=== PATIENT | female | born 1950 | race Caucasian/White ===

== ENCOUNTER 2023-02-28 08:14 | Day surgery (SDC) | payer MEDICARE, OTHER, SELFPAY ==
[2023-02-28] VITALS (7 sets, daily range): BP systolic 82–137; BP diastolic 54–80; PULSE 64–88; RESP 16; TEMP 36.5–36.8; O2SAT 92–95; BMI 30.4
[2023-02-28] MEDS: Lactated Ringers 1,000 ML 15 ML IV (08:46)
--- NOTE | 2023-02-28 09:08 | PCM.HP.STD ---
[facility] - General General Date of Service: 02/28/23 Chief Complaint: Personal history of colon polyps HPI Narrative HOLLEY NVOA, is a 72 F who presents for screening colonoscopy today. She has had a personal history of colon polyps. Her most recent colonoscopy was 2012. She denies any bright red blood per rectum or melena no abdominal pain. No change of bowel habits. No heart or pulmonary disease. [facility] Medical History (Updated 02/28/23 @ 09:[address] Singh Proctor MD) Arthritis Benign essential HTN Cancer Diverticulosis High cholesterol History of echocardiogram Hx of colonic polyp Hx of malignant melanoma Hypercholesterolemia Non-rheumatic tricuspid valve insufficiency Non-smoker Osteoarthritis Wears glasses Home Medications allopurinol 100 mg tablet 100 mg PO DAILY 12/24/22 [History Last Taken Unknown] amlodipine 10 mg tablet 10 mg PO DAILY 12/24/22 [History Last Taken Unknown] aspirin 81 mg tablet,delayed release (Adult Low Dose Aspirin) 81 mg PO QODAY 12/24/22 [History Last Taken Unknown] calcium carbonate 500 mg-vitamin D3 5 mcg (200 unit) tablet (Os-Mickey 500 + D3) 1 tab PO BID 12/24/22 [History Last Taken Unknown] lisinopril 20 mg tablet 20 mg PO DAILY 12/24/22 [History Last Taken 02/28/23] loratadine 10 mg tablet 10 mg PO DAILY PRN ALLERGIES 12/24/22 [History Last Taken Unknown] nitrofurantoin monohydrate/macrocrystals 100 mg capsule (Macrobid) 100 mg PO DAILY PRN UTI 12/24/22 [History Last Taken Unknown] simvastatin 10 mg tablet 10 mg PO DAILY 12/24/22 [History Last Taken Unknown] Allergy/AdvReac Type Severity Reaction Status Date / Time Sulfa (Sulfonamide Allergy Rash Verified 12/24/22 15:10 Antibiotics) Family History (Updated 12/24/22 @ 15:08 by Jen Dick) Unknown No problems noted. Surgical History History of placement of ear tubes History of surgical removal of skin lesion Hx of colonoscopy Hx of hysterectomy Social History (Updated 12/24/22 @ 15:09 by Jen Dick) adopted: Yes household members: spouse current occupational status: retired Smoking Status: Never smoker alcohol intake: never substance use type: does not use ROS Constitutional Constitutional: Reports systems reviewed and no addt'l complaints, except as documented Cardiovascular Cardiovascular: Denies chest pain Respiratory/Chest Respiratory/Chest: Denies shortness of breath at rest Gastrointestinal Gastrointestinal: Denies abdominal pain, change in bowel habits, hematochezia or melena Vital Signs Vital Signs Vital Signs: 02/28/23 08:41 02/28/23 08:41 Temperature 97.7 F L Temperature Source Temporal Pulse Rate 88 Respiratory Rate 16 Respiratory Pattern Normal Blood Pressure 137/80 H Blood Pressure Mean 99 Blood Pressure Source Monitor Blood Pressure Position Semi-Fowlers Blood Pressure Location Right Arm Pulse Ox 95 Oxygen Delivery Method Room Air Weight Weight: 171 lb 15.369 oz Body Mass Index (BMI) 30.4 Physical Exam Const alert, oriented x3 and no apparent distress General Appearance: cooperative and comfortable Eyes General Eye: normal appearance of both eyes Neck General: normal visual inspection Chest inspection of chest normal Resp Effort and Inspection: able to speak in complete sentences and symmetric chest movement Auscultation: clear to auscultation bilaterally Cardio regular rate and regular rhythm GI soft to palpation, non-tender and non-distended Extremity no calf tenderness Neuro oriented x3 Psych thought process normal Assessment & Plan Assessment/Plan (1) Hx of colonic polyp: PLAN: Patient presents via open access today for surveillance colonoscopy as she has a personal history of colon polyps. I recommend a colonoscopy with possible biopsy or polypectomy as indicated. She is aware of the technique, benefit, risk, alternatives. She has had an opportunity to ask and have questions answered. We will proceed as noted. Singh Proctor M.D., F.A.C.S.
--- NOTE | 2023-02-28 09:33 | OP.COLON_ITS ---
Patient Name: Vika Webster Procedure Date: 02/28/2023 8:51 AM Date of : 1950 Age: 72 Procedure: Colonoscopy Indications: High risk colon cancer surveillance: Personal history of colonic polyps Providers: Singh Proctor MD Referring MD: Singh Proctor MD Medicines: See the Anesthesia note for documentation of the administered medications Patient Profile: Last Colonoscopy: 5 years ago. Complications: No immediate complications. Procedure: Pre-Anesthesia Assessment: - Prior to the procedure, a History and Physical was performed, and patient medications and allergies were reviewed. The patient's tolerance of previous anesthesia was also reviewed. The risks and benefits of the procedure and the sedation options and risks were discussed with the patient. All questions were answered, and informed consent was obtained. Prior Anticoagulants: The patient has taken no anticoagulant or antiplatelet agents. ASA Grade Assessment: II - A patient with mild systemic disease. After reviewing the risks and benefits, the patient was deemed in satisfactory condition to undergo the procedure. After I obtained informed consent, the scope was passed under direct vision. Throughout the procedure, the patient's blood pressure, pulse, and oxygen saturations were monitored continuously. The adult colonoscope was introduced through the anus and advanced to the cecum, identified by appendiceal orifice and ileocecal valve. The colonoscopy was performed without difficulty. The patient tolerated the procedure well. The quality of the bowel preparation was good. The ileocecal valve and the appendiceal orifice were photographed. Scope In: 9:16:35 AM Scope Withdrawal Time 0 hours 6 minutes 36 seconds Scope Out: 9:28:38 AM Total Procedure Duration Time 0 hours 12 minutes 3 seconds Findings: Hemorrhoids were found on perianal exam. Multiple diverticula were found in the sigmoid colon. The exam was otherwise without abnormality. Impression: - Hemorrhoids found on perianal exam. - Diverticulosis in the sigmoid colon. - The examination was otherwise normal. - No specimens collected. Recommendation: - Discharge patient to home. - Resume previous diet. - Continue present medications. - Repeat colonoscopy in 10 years for screening purposes. Procedure Code(s): --- Professional --- 45998, Colonoscopy, flexible; diagnostic, including collection of specimen(s) by brushing or washing, when performed (separate procedure) Diagnosis Code(s): --- Professional --- Z86.010, Personal history of colonic polyps K64.9, Unspecified hemorrhoids K57.30, Diverticulosis of large intestine without perforation or abscess without bleeding CPT copyright 2021 [employer]. All rights reserved. The codes documented in this report are preliminary and upon hims coder review may be revised to meet current compliance requirements. Singh Proctor MD 02/28/2023 9:32:49 AM This report has been signed electronically. Number of Addenda: 0 Note Initiated On: 02/28/2023 8:51 AM
--- NOTE | 2023-02-28 09:33 | OP.CCLET_ITS ---
02/28/2023 Cory Morrissey Re : Colonoscopy procedure for Vika Webster Dear [place] This procedure was performed on Tuesday, February 28, 2023. My impressions and recommendations are as follows: Impressions : - Hemorrhoids found on perianal exam. - Diverticulosis in the sigmoid colon. - The examination was otherwise normal. - No specimens collected. Recommendations : - Discharge patient to home. - Resume previous diet. - Continue present medications. - Repeat colonoscopy in 10 years for screening purposes. My findings are described in the full procedure note, which is enclosed. If I can be of further assistance, please feel free to contact me at Doctor phone number(s): Work: . Sincerely, Singh Proctor MD 02/28/2023 9:32:49 AM This report has been signed electronically.
== END 2023-02-28 10:37 | disposition home or self-care (01) ==
LOC: EN 08:22 → AC 08:24
PROVIDERS: PCP Internal Medicine; Referring Provider Internal Medicine; Visit Provider Surgery
PROC: 0DJD8ZZ Inspection of Lower Intestinal Tract, Via Natural or Artificial Opening Endoscopic (ICD-10-PCS; CPT 45378; principal; 2023-02-28 09:10)
DX: Z12.11 Encounter for screening for malignant neoplasm of colon (principal); K57.30 Diverticulosis of large intestine without perforation or abscess without bleeding; K64.9 Unspecified hemorrhoids; Z86.010 Personal history of colon polyps; I10 Essential (primary) hypertension; E78.00 Pure hypercholesterolemia, unspecified; Z79.899 Other long term (current) drug therapy; Z79.82 Long term (current) use of aspirin; Z85.820 Personal history of malignant melanoma of skin; Z90.710 Acquired absence of both cervix and uterus
CPT/HCPCS: G0121; J7120; J2405

== ENCOUNTER → 2025-01-31 | Outpatient (CLI) | payer MEDICARE, OTHER, SELFPAY ==
--- NOTE | 2025-01-31 10:22 | MRI_ITS ---
PROCEDURE: BRAIN W/WO CONTRAST 01/31/2025 REASON FOR EXAM: ASYMMETRIC HEARING LOSS, CHRONIC EUSTACHIAN SALPINGITIS TECHNIQUE: Procedure Code: [id number] Modality: MR Procedure: BRAIN W/WO CONTRAST Multiplanar and multisequence images were obtained. CONTRAST: VOLUME: mL FINDINGS: Motion artifact limits evaluation on a few of the provided sequences. Scattered FLAIR hyperintensities are noted throughout the bilateral cerebral white matter, nonspecific and without corresponding enhancement. The bilateral internal auditory canals appear unremarkable. The cisternal and canalicular segments of cranial nerves 7 and 8 appear unremarkable bilaterally. The cerebellar pontine angles appear unremarkable bilaterally. The brgigs-white matter differentiation is appropriate. The ventricles are normal in size and configuration. No midline shift. The midline structures are intact, specifically the corpus callosum, septum pellucidum, pituitary gland, and cerebellar vermis. The cervicomedullary junction appears unremarkable. The paranasal sinuses are clear. Fluid is noted within several bilateral mastoid air cells. The soft tissues of the posterior nasal pharynx appear unremarkable. Specifically, the orifices of the Eustachian tubes, the torus tubarius, and the fossae of Rosenmuller appear unremarkable bilaterally. Diffusion-weighted images demonstrate no restricted diffusion. No abnormal enhancement pattern. MRI/Brain W/WO Contrast IMPRESSION: Nonspecific, nonenhancing FLAIR hyperintensities throughout the bilateral cereb ral white matter likely represent chronic microvascular ischemic changes. Bilateral mastoid effusions. Reading Location: [id number]
== END | disposition home or self-care (01) ==
LOC: OPMRI 10:18
PROVIDERS: PCP Internal Medicine; Referring Provider Otolaryngology; Visit Provider Otolaryngology
DX: H68.023 Chronic Eustachian salpingitis, bilateral (principal)
CPT/HCPCS: 70553; A9575